=== PATIENT | male | born 2000 | race African-American/Black ===

== ENCOUNTER 2023-05-26 04:44 | Emergency (ER) | payer MEDICAID ==
[~2023-05-26] VITALS: Ht 177.8 cm; Wt 82.0 kg
[2023-05-26 04:47] VITALS: O2SAT 100
[2023-05-26 05:12] LABS: BASOPHILS % 0.5 % (0.0-2.0); EOSINOPHILS % 0.2 % (0.0-5.0); HEMATOCRIT. 47.1 % (42.0-52.0); LYMPHOCYTES % 9.9 % (20.0-50.0); MEAN CORPUSCULAR HEMOGLOBIN 29.5 pg (28.0-32.0); MEAN CORPUSCULAR HGB CONC 33.9 g/dL (31.0-37.0); MEAN CORPUSCULAR VOLUME 86.8 fL (80.0-94.0); MEAN PLATELET VOLUME 9.4 fl (7.4-10.4); MONOCYTES % 2.6 % (2.0-8.0); NEUTROPHILS % 86.8 % (40.0-76.0); PLATELET 242 x1000/uL (130-400); RED BLOOD CELL COUNT 5.42 mill/uL (4.7-6.1); RED CELL DISTRIBUTION WIDTH 13.2 % (11.6-14.6); WHITE BLOOD COUNT 17.5 x1000/uL (4.5-11.0)
[2023-05-26 05:20] LABS: CHLORIDE 107 mEq/L (98-107); INDEX HEMOLYSI 1 (1-3); INDEX ICTERIC 1 (1-4); INDEX LIPEMIC 1 (1-3); POTASSIUM 3.2 mEq/L (3.5-5.1); SODIUM 137 mEq/L (136-145)
[2023-05-26 05:27] LABS: ALANINE AMINOTRANSFERASE 20 IU/L (13-61); ALBUMIN 4.2 g/dL (3.4-5.0); ASPARTATE AMINOTRANSFERASE 18 IU/L (15-37); BILIRUBIN TOTAL 0.7 mg/dL (0.1-1.0); CALCIUM 9.1 mg/dL (8.5-10.1); CARBON DIOXIDE 22 mEq/L (21-32); GLUCOSE 119 mg/dL (70-105); UREA NITROGEN BLOOD 9 mg/dL (7-21)
[2023-05-26] MEDS ORDERED: ONDANSETRON HCL 4MG/2ML INJ IV STA (08:17)
[2023-05-26] MEDS ORDERED: MORPHINE SULFATE 4 MG/ML CPJ (NOT FOR IM USE) IV STA (08:17)
[2023-05-26] MEDS ORDERED: SODIUM CHLORIDE 0.9% 1,000 ML IV ONE (08:30)
[2023-05-26] MEDS ORDERED: MORPHINE SULFATE 4 MG/ML CPJ (NOT FOR IM USE) IV SCH (10:00)
[2023-05-26] MEDS ORDERED: IOHEXOL-300 100 ML BOTTLE ONE (11:22)
[2023-05-26] MEDS ORDERED: ONDA4TAB11 PO (11:39)
[2023-05-26] MEDS ORDERED: TRAM50TA3 MT (11:39)
[2023-05-26 14:36] VITALS: BP 124/74; PULSE 71; RESP 18; TEMP 98.2
== END 2023-05-26 14:37 | disposition home or self-care (01) ==
LOC: ER 04:44
DX: R10.84 Generalized abdominal pain (principal)
CPT/HCPCS: 80053; 83690; 85025; 36415; 71045; 74177; 96361; 96374; 96375; 99285; Q9967; J2405; J2270; J7030; Z7610 ×2

== ENCOUNTER 2023-05-27 12:39 | Emergency (ER) | payer MEDICAID ==
[~2023-05-27] VITALS: Ht 177.8 cm; Wt 86.0 kg
[~2023-05-27 12:39] MED LIST: ONDA4TAB11 PO; TRAM50TA3 MT
[2023-05-27 12:55] VITALS: O2SAT 100
[2023-05-27 14:29] LABS: CLARITY URINE CLEAR (CLEAR); COLOR URINE DARK YELLOW (YELLOW); GLUCOSE URINE NEGATIVE (NEGATIVE); KETONES URINE 3+ (NEGATIVE); LEUKOCYTE ESTERASE URINE TRACE (NEGATIVE); NITRITE URINE NEGATIVE (NEGATIVE); OCCULT BLOOD URINE NEGATIVE (NEGATIVE); PH URINE 6.5 (4.5-8.0); PROTEIN URINE TRACE (NEGATIVE); SPECIFIC GRAVITY URINE 1.025 (1.005-1.030)
[2023-05-27] MEDS ORDERED: ACETAMINOPHEN 325MG TABLET PO STA (14:36)
[2023-05-27] MEDS ORDERED: MAGNESIUM/ALUMINUM HYDROXIDE/SIMETHICONE 30ML UDC PO STA (14:36)
[2023-05-27] MEDS ORDERED: HALOPERIDOL LACTATE 5MG/ML VIAL IM ONE (14:45)
[2023-05-27] MEDS ORDERED: ONDANSETRON 4MG ODT PO ONE (14:45)
[2023-05-27] MEDS ORDERED: FAMOTIDINE 20MG TABLET PO ONE (14:45)
[2023-05-27 14:54] LABS: MUCUS URINE TRACE /lpf (NONE/TRACE)
[2023-05-27 14:58] LABS: SQUAMOUS EPITHELIAL CELL URINE NONE SEEN /lpf (RARE/1+)
[2023-05-27 15:00] LABS: BACTERIA URINE 1+; RBC URINE 0-2 /hpf (0-2)
[2023-05-27 15:32] LABS: BASOPHILS % 0.3 % (0.0-2.0); EOSINOPHILS % 0.1 % (0.0-5.0); HEMATOCRIT. 45.6 % (42.0-52.0); HEMOGLOBIN. 15.1 g/dL (14.0-18.0); LYMPHOCYTES % 7.7 % (20.0-50.0); MEAN CORPUSCULAR HEMOGLOBIN 29.3 pg (28.0-32.0); MEAN CORPUSCULAR HGB CONC 33.2 g/dL (31.0-37.0); MEAN CORPUSCULAR VOLUME 88.2 fL (80.0-94.0); MEAN PLATELET VOLUME 9.6 fl (7.4-10.4); MONOCYTES % 3.1 % (2.0-8.0); NEUTROPHILS % 88.8 % (40.0-76.0); PLATELET 223 x1000/uL (130-400); RED BLOOD CELL COUNT 5.17 mill/uL (4.7-6.1); RED CELL DISTRIBUTION WIDTH 13.5 % (11.6-14.6); WHITE BLOOD COUNT 14.2 x1000/uL (4.5-11.0)
[2023-05-27 15:57] LABS: CHLORIDE 106 mEq/L (98-107); INDEX HEMOLYSI 1 (1-3); INDEX ICTERIC 1 (1-4); INDEX LIPEMIC 1 (1-3); SODIUM 138 mEq/L (136-145)
[2023-05-27 16:08] LABS: ALANINE AMINOTRANSFERASE 25 IU/L (13-61); ASPARTATE AMINOTRANSFERASE 20 IU/L (15-37); BILIRUBIN TOTAL 0.7 mg/dL (0.1-1.0); CALCIUM 9.2 mg/dL (8.5-10.1); CARBON DIOXIDE 24 mEq/L (21-32); GLUCOSE 113 mg/dL (70-105); PROTEIN TOTAL 7.8 g/dL (6.0-8.3); UREA NITROGEN BLOOD 13 mg/dL (7-21)
[2023-05-27] MEDS ORDERED: POTASSIUM CHLORIDE 20MEQ/PACKET PO ONE (16:45)
[2023-05-27] MEDS ORDERED: HALOPERIDOL LACTATE 5MG/ML VIAL IM SCH (17:00)
[2023-05-27] MEDS ORDERED: POTASSIUM CHLORIDE 20MEQ/PACKET PO SCH (17:00)
[2023-05-27] MEDS ORDERED: MAGNESIUM/ALUMINUM HYDROXIDE/SIMETHICONE 30ML UDC PO SCH (17:00)
[2023-05-27] MEDS ORDERED: ONDANSETRON 4MG ODT PO SCH (17:00)
[2023-05-27] MEDS ORDERED: FAMOTIDINE 20MG TABLET PO SCH (17:00)
[2023-05-27] MEDS ORDERED: ACETAMINOPHEN 325MG TABLET PO SCH (17:00)
[2023-05-27 19:56] VITALS: BP 101/67; PULSE 78; RESP 16; TEMP 98.3
== END 2023-05-27 19:57 | disposition home or self-care (01) ==
LOC: ER 12:39
DX: R10.13 Epigastric pain (principal)
CPT/HCPCS: 99284; 80053; 81003; 83690; 85025; 36415; 93005; 96372; Q0162; J1630

== ENCOUNTER 2025-07-18 11:24 | Emergency (ER) | payer MEDICAID ==
[~2025-07-18] VITALS: Ht 177.8 cm; Wt 82.0 kg
[~2025-07-18 11:24] MED LIST changes: +ONDA-239 PO; -ONDA4TAB11 PO
[2025-07-18 11:36] VITALS: O2SAT 100
[2025-07-18 11:47] VITALS: TEMP 36.9; O2SAT 99
[2025-07-18 14:15] VITALS: BP 118/69; PULSE 86; RESP 18
[2025-07-18] MEDS: KETOROLAC 30MG/ML VIAL IM ONE (14:15)
[2025-07-18] MEDS ORDERED: NAPR-681 MT (14:35)
== END 2025-07-18 15:52 | disposition home or self-care (01) ==
LOC: ER 11:24
DX: M79.672 Pain in left foot (principal); Z79.1 Long term (current) use of non-steroidal anti-inflammatories (NSAID)
CPT/HCPCS: 73630; 99283; Z7610